=== PATIENT | female | born 1990 | race Caucasian/White ===

== ENCOUNTER → 2020-07-16 11:38 | Outpatient (BNVA) | payer MEDICAID, SELFPAY | PROVIDERS: Family Provider Family Medicine; Visit Provider Nurse Practitioner Family | DX: Z20.828 Contact with and (suspected) exposure to other viral communicable diseases (principal); W19.XXXA Unspecified fall, initial encounter; Y92.009 Unspecified place in unspecified non-institutional (private) residence as the place of occurrence of the external cause; S46.911A Strain of unspecified muscle, fascia and tendon at shoulder and upper arm level, right arm, initial encounter; M54.2 Cervicalgia; B96.89 Other specified bacterial agents as the cause of diseases classified elsewhere; J32.9 Chronic sinusitis, unspecified | CPT/HCPCS: 87400 ==

== ENCOUNTER → 2020-07-17 09:52 | Outpatient (BNVA) | payer MEDICAID, SELFPAY | PROVIDERS: Family Provider Family Medicine; Visit Provider Nurse Practitioner Family | DX: Z20.828 Contact with and (suspected) exposure to other viral communicable diseases (principal); W19.XXXA Unspecified fall, initial encounter; Y92.009 Unspecified place in unspecified non-institutional (private) residence as the place of occurrence of the external cause; M54.2 Cervicalgia; S46.911A Strain of unspecified muscle, fascia and tendon at shoulder and upper arm level, right arm, initial encounter; B96.89 Other specified bacterial agents as the cause of diseases classified elsewhere; J32.9 Chronic sinusitis, unspecified | CPT/HCPCS: 87635 ==

== ENCOUNTER → 2020-10-21 11:25 | Outpatient (BNVA) | payer MEDICAID, SELFPAY | PROVIDERS: Family Provider Family Medicine; PCP Nurse Practitioner Family; Visit Provider Nurse Practitioner Family | DX: F41.9 Anxiety disorder, unspecified (principal); F32.9 Major depressive disorder, single episode, unspecified; E55.9 Vitamin D deficiency, unspecified; R53.83 Other fatigue; M25.561 Pain in right knee; M25.562 Pain in left knee; G89.29 Other chronic pain; Z79.899 Other long term (current) drug therapy; Z13.6 Encounter for screening for cardiovascular disorders | CPT/HCPCS: 73562; 80053; 80061; 81003; 82306; 83036; 84439; 84443; 85025; 85651; 86038; 86140; 86431 ==

== ENCOUNTER → 2020-10-28 13:43 | Outpatient (BNVA) | payer MEDICAID, SELFPAY | PROVIDERS: Family Provider Family Medicine; PCP Nurse Practitioner Family; Visit Provider Nurse Practitioner Family | DX: M25.561 Pain in right knee (principal); M25.562 Pain in left knee | CPT/HCPCS: 73560 ==

== ENCOUNTER → 2020-12-18 09:04 | Outpatient (BNVA) | payer MEDICAID, SELFPAY | PROVIDERS: Family Provider Family Medicine; PCP Nurse Practitioner Family; Visit Provider Internal Medicine Rheumatology | DX: M19.90 Unspecified osteoarthritis, unspecified site (principal); R76.8 Other specified abnormal immunological findings in serum; Z79.899 Other long term (current) drug therapy; Z11.59 Encounter for screening for other viral diseases; Z11.1 Encounter for screening for respiratory tuberculosis; R53.83 Other fatigue; I73.00 Raynaud's syndrome without gangrene | CPT/HCPCS: 99204 ==

== ENCOUNTER 2020-12-18 10:37 | Outpatient (CLI) | payer MEDICAID, SELFPAY ==
[2020-12-18 12:18] LABS: 25 Hydroxy Vitamin D 40 ng/mL (30-100)
[2020-12-18 12:45] LABS: Hepatitis B Core AB, Total Non-Reactive (Nonreactive); Hepatitis B Surface Antigen Non-Reactive (Nonreactive); Hepatitis C Virus Antibody Non-Reactive (Nonreactive)
[2020-12-19 10:27] LABS: COMPLEMENT COMPONENT C3C 117 mg/dL (83-193); COMPLEMENT COMPONENT C4C 26 mg/dL (15-57)
[2020-12-19 14:06] LABS: CENTROMERE B ANTIBODY <1.0 NEG AI (<1.0 NEG); JO-1 ANTIBODY <1.0 NEG AI (<1.0 NEG); RNP ANTIBODY <1.0 NEG AI (<1.0 NEG); SCL-70 ANTIBODY <1.0 NEG AI (<1.0 NEG); SJOGREN'S ANTIBODY (SS-A) <1.0 NEG AI (<1.0 NEG); SM ANTIBODY <1.0 NEG AI (<1.0 NEG); SS-B <1.0 NEG AI (<1.0 NEG)
[2020-12-19 15:42] LABS: COMPLEMENT, TOTAL (CH50) >60 U/mL (31-60)
[2020-12-19 16:36] LABS: THYROID PEROXIDASE ANTIBODIES 1 IU/mL (<9)
[2020-12-20 14:43] LABS: Quantiferon Mitogen 9.53 IU/mL; Quantiferon Nil 0.02 IU/mL; Quantiferon Plus TB1 0.01 IU/mL; Quantiferon TB Gold NEGATIVE (NEGATIVE)
[2020-12-22 11:32] LABS: ANA SCREEN, IFA POSITIVE (NEGATIVE)
[2020-12-24 00:07] LABS: DNA AB (DS) CRITHIDIA,IFA NEGATIVE (NEGATIVE)
== END 2020-12-18 10:38 | disposition home or self-care (01) ==
PROVIDERS: PCP Nurse Practitioner Family; Visit Provider Internal Medicine Rheumatology
DX: M19.90 Unspecified osteoarthritis, unspecified site (principal); R76.8 Other specified abnormal immunological findings in serum; Z11.59 Encounter for screening for other viral diseases; Z79.899 Other long term (current) drug therapy; Z11.1 Encounter for screening for respiratory tuberculosis
CPT/HCPCS: 36415; 82306; 86160; 86162; 86235; 86255; 86376; 86480; 86704; 86803; 87340

== ENCOUNTER → 2021-01-05 12:22 | Outpatient (BNVA) | payer MEDICAID, SELFPAY | PROVIDERS: PCP Nurse Practitioner Family; Visit Provider Nurse Practitioner Family | DX: H66.93 Otitis media, unspecified, bilateral (principal); L03.316 Cellulitis of umbilicus | CPT/HCPCS: 87070 ==

== ENCOUNTER → 2021-01-23 11:02 | Outpatient (BNVA) | payer MEDICAID, SELFPAY | PROVIDERS: PCP Nurse Practitioner Family; Referring Provider Nurse Practitioner Family; Visit Provider Obstetrics & Gynecology | DX: N92.6 Irregular menstruation, unspecified (principal); N91.2 Amenorrhea, unspecified; Z12.4 Encounter for screening for malignant neoplasm of cervix | CPT/HCPCS: 82627; 83001; 83002; 84403; 84443; 85025; 88175; 88305 ==

== ENCOUNTER → 2021-02-09 08:57 | Outpatient (BNVA) | payer MEDICAID, SELFPAY | PROVIDERS: PCP Nurse Practitioner Family; Visit Provider Obstetrics & Gynecology | DX: N93.9 Abnormal uterine and vaginal bleeding, unspecified (principal); R87.612 Low grade squamous intraepithelial lesion on cytologic smear of cervix (LGSIL) | CPT/HCPCS: 81025; 88305 ==

== ENCOUNTER → 2021-02-17 10:20 | Outpatient (BNVA) | payer MEDICAID, SELFPAY | PROVIDERS: PCP Nurse Practitioner Family; Visit Provider Obstetrics & Gynecology | DX: N92.6 Irregular menstruation, unspecified (principal) | CPT/HCPCS: 76830 ==

== ENCOUNTER → 2021-03-10 15:05 | Outpatient (BNVA) | payer MEDICAID, SELFPAY | PROVIDERS: PCP Nurse Practitioner Family; Visit Provider Internal Medicine Rheumatology | DX: M25.60 Stiffness of unspecified joint, not elsewhere classified (principal); R76.8 Other specified abnormal immunological findings in serum; R53.83 Other fatigue; Z79.899 Other long term (current) drug therapy; I73.00 Raynaud's syndrome without gangrene; R10.11 Right upper quadrant pain; F17.200 Nicotine dependence, unspecified, uncomplicated | CPT/HCPCS: 99214 ==

== ENCOUNTER → 2021-04-02 13:14 | Outpatient (BNVA) | payer MEDICAID, SELFPAY | PROVIDERS: PCP Nurse Practitioner Family; Visit Provider Obstetrics & Gynecology | DX: Z20.822 Contact with and (suspected) exposure to COVID-19 (principal); N85.2 Hypertrophy of uterus; N93.9 Abnormal uterine and vaginal bleeding, unspecified; R10.2 Pelvic and perineal pain; R87.612 Low grade squamous intraepithelial lesion on cytologic smear of cervix (LGSIL) | CPT/HCPCS: 87635 ==

== ENCOUNTER 2021-04-07 13:46 | Observation (INO) | payer MEDICAID, SELFPAY ==
[2021-04-03 12:07] VITALS: BMI 26.6
--- NOTE | 2021-04-03 12:28 | ANES.PREANE2 ---
Pre-Anesthetic Assessment Pre-Anesthetic Assessment: Height/Weight: Height 1.65 m Weight 72.575 kg Preop Diagnosis: enlarged uterus, pelvic pain, abnormal pap, AUB Proposed Procedure: Operation Date: 04/07/21 09:40 Proposed Procedures p Laparoscopic Assist Vaginal Hysterectomy 20641 R10.2 N93.9 N85.2 R87.612(Not Applicable) - Yvonne Stanley MD s Laparoscopic Salpingectomy(Not Applicable) - Yvonne Stanley MD Familial anesthetic complications: PONV and aggression Social: Social History: Tobacco and No alcohol Exam: Pre-Anes Outpt Exam: alert, oriented x 3, clear to auscultation bilaterally and regular rate & rhythm Airway: MP: 2 Dentition: Chipped (back) Musc/skel: Comments: arthritis, ? lupus (on prednisone and hydroxychloroquine) Neuropsych: Neuropsych: Seizure (ages 12 -15 etiology migraines) Anesthetic Plan: ASA status: 2 Anesthesia: General Risk of > 500 ml blood loss (7ml/kg in children): No PFSH Anesthesia PFSH: Medical History Anxiety and depression Bilateral knee pain Bipolar depression Cellulitis of umbilicus Cervical spine pain Chronic joint pain Fall at home Family history of systemic lupus erythematosus Fatigue Fatigue Fever H/O acute pelvic inflammatory disease High risk medication use Hypertension screen Inflammatory arthritis Irregular menstrual bleeding Low libido Medication management Otitis media of both ears Positive CHRISTY (antinuclear antibody) Right shoulder strain Sinusitis, bacterial Vitamin D deficiency Surgical History H/O tubal ligation 2012 History of 2012 History of cholecystectomy 2009 Family History Mother Cervical cancer Father Diabetes Chronic kidney disease (CKD) CAD (coronary artery disease) Hyperlipidemia Hypertension Lung disease Lupus Grandfather Diabetes Paternal Sister Chronic kidney disease (CKD) Lupus Other Family history of premature coronary artery disease Rheumatoid arthritis Denies family history of Bleeding disorder Stroke Social History Smoking and tobacco status: current every day smoker Female Reproductive History: Date of last menstrual period: 03/23/21 Data Anesthesia Cardiac Studies: No Data to Display
[2021-04-03 13:44] LABS: Basophils # 0.1 10^3/uL (0.0-0.1); Basophils % 0.6 %; Eosinophils # 0.2 10^3/uL (0.0-0.8); Eosinophils % 1.9 %; Hemoglobin 14.6 g/dL (11.5-15.3); Lymphocytes # 2.8 10^3/uL (0.8-4.8); Lymphocytes % 28.4 %; Mean Corpuscular HGB Conc 33.2 g/dL (30.0-36.0); Mean Corpuscular Hemoglobin 30.5 pg (28.0-34.0); Mean Corpuscular Volume 91.9 fl (81-99); Mean Platelet Volume 11.6 fL (7.4-10.4); Monocytes # 0.4 10^3/uL (0.2-0.9); Neutrophils # 6.38 10^3/uL (1.8-7.7); Neutrophils % 64.8 %; Nucleated Red Blood Cells % 0 %; Platelet Count 220 10^3/cmm (130-400); Red Blood Count 4.79 10^6/uL (4.1-5.3); Red Cell Distribution Width 12.8 % (12.1-15.1); White Blood Count 9.8 10^3/uL (4.0-10.0)
[2021-04-03 13:59] LABS: Blood Urea Nitrogen 11 mg/dL (6-20); Calcium 9.2 mg/dL (8.5-10.5); Carbon Dioxide 27 mmol/L (22-29); Chloride 100 mmol/L (98-107); Glomerular Filtration Rate 118.2 mL/min (90-130); Glucose 66 mg/dL (65-115); Osmolality Calculated 280 mOsm/kg (285-295); Sodium 136 mmol/L (136-145)
[2021-04-07] VITALS (22 sets, daily range): BP systolic 100–129; BP diastolic 65–89; PULSE 69–101; RESP 16–24; TEMP 36.4–37; O2SAT 95–100
[2021-04-07] MEDS: sodium chloride 0.9% 1,000 ML 30 ML IV (08:38)
[2021-04-07] MEDS: scopolamine 1.5 Patch 1 PATCH TRANSDERMA (08:39)
[2021-04-07] MEDS: phenazopyridine 100 mg Tablet 200 MG PO (08:40)
[2021-04-07] MEDS: ketorolac 30 mg/mL INJ IVP ×3 (08:40→21:53)
[2021-04-07] MEDS: CELEcoxib 200 mg Capsule 400 MG PO (08:40)
[2021-04-07] MEDS: gabapentin 300 mg Capsule PO (08:41)
[2021-04-07 09:03] LABS: OR HCG Qualitative Urine Negative (Negative)
[2021-04-07] MEDS: acetaminophen 1,000 MG/100 ML PIGGYBACK 400 MG IV (10:15)
--- NOTE | 2021-04-07 10:15 | W.PM.OPSUD ---
Surgery/Procedure H&P Update DATE OF PROCEDURE: April 07, 2021 DATE H&P PERFORMED: 04/02/21 H&P UPDATE INFORMATION: I have reviewed H&P completed within last 30 days, I have examined patient prior to procedure and No changes to prior documentation PREOP DIAGNOSIS: enlarged uterus, pelvic pain, abnormal pap, AUB PLANNED PROCEDURE: Operation Date: 04/07/21 09:40 Proposed Procedures p Laparoscopic Assist Vaginal Hysterectomy 38832 R10.2 N93.9 N85.2 R87.612(Not Applicable) - Yvonne Stanley MD s Laparoscopic Salpingectomy(Not Applicable) - Yvonne Stanley MD Related Problem List Diagnoses (1) Enlarged uterus: (2) Pelvic pain: (3) LGSIL on Pap smear of cervix: (4) Abnormal uterine bleeding (AUB):
--- NOTE | 2021-04-07 10:19 | P.ANESUD_ITS ---
Pre-Anesthetic Update Pre-Anesthetic Assessment: Date of Surgery/Procedure: 04/07/21 Preop Nallely gnosis: enlarged uterus, pelvic pain, abnormal pap, AUB Proposed Procedure: Operation Date: 04/07/21 09:40 Proposed Procedures p Laparoscopic Assist Vaginal Hysterectomy 36183 R10.2 N93.9 N85.2 R87.612(Not Applicable) - Yvonne Stanley MD s Laparoscopic Salpingectomy(Not Applicable) - Yvonne Stanley MD Any changes to Pre-Anesthetic Assessment?: No Last Intake: Intake Last Liquid Date 04/06/21 Last Liquid Time 21:00 Last Solid Date 04/06/21 Last Solid Time 16:00 Labs Last 48hrs: Laboratory Results - last 48 hr 04/07/21 09:01 Urine HCG, Qual Negative Vitals: Temperature 98.6 F 04/07/21 08:21 Pulse Rate 86 04/07/21 08:21 Respiratory Rate 16 04/07/21 08:21 Blood Pressure 114/71 04/07/21 08:21 Blood Pressure Mallika n 85 04/07/21 08:21 Pulse Oximetry 98 04/07/21 08:21 Oxygen Delivery Me thod 04/07/21 08:22 Exam: Pre-Anes Outpt Exam: alert, oriented x 3, clear to auscultation bilaterally and regular rate & rhythm Cardiac Studies: No Data to Display
[2021-04-07] MEDS: vasopressin 20 unit/mL INJ INJECTION (11:28)
--- NOTE | 2021-04-07 13:26 | P.OP_ITS ---
Operative Report Date of procedure: April 07, 2021 Pre-op Diagnosis: enlarged uterus, pelvic pain, abnormal pap, AUB Post-op diagnosis: same Post-op Findings: entire omentum adhered to the previous . Normal appearing uterus, tubes and ovaries Procedure Done: Laparoscopic assisted vaginal hysterectomy with bilateral salpingectomy Specimens removed/disposition: uterus and bilateral fallopian tubes to pathology Anesthesia: General Estimated blood loss (mL): 100 IV fluids (mL): 1,000 Urine output (mL): 100 Complications: none Condition: stable Disposition: floor Procedure: The patient was taken to the operating room where general anesthesia was administered and found to be adequate. She was prepped and draped in the normal sterile fashion in the dorsal lithotomy position in [facility]. A Keenan catheter was placed. A weighted speculum was placed into the vagina and the anterior lip of the cervix was grasped with a single tooth tenaculum. The Zumi uterine manipulator was placed. The weighted speculum was removed. The gloves were changed and attention was turned to the abdomen. A 5 mm infraumbilical incision was made. Using a 5 mm port with the camera, the port was placed into the abdomen. The abdomen was insufflated. Two low, lateral 5 mm ports were placed on the left and right under direct visualization from the camera. The entire omentum was adhesed to the previous scar. Dr Fonseca was contacted and he came to the room. He took down the adhesions. See his separate report. The right tube was grasped and elevated. Using the laparoscopic cautery, the mesosalpinx was divided between the ovary and tube. The tube was removed. This was performed the same way on the left. The uteroovarian ligaments as well as the round ligaments were ligated. Attention was then turned to the vaginal portion of the procedure. The weighted speculum was placed into the vagina. The zumi manipulator was removed. The single tooth tenaculum was removed and replaced with the severiano's tenaculum. 10 mL of dilute Pitressin was injected at the vesicovaginal junction. A circumferential incision was made at the vesicovaginal junction and the vaginal mucosa reflected cephalad. The posterior peritoneum was entered sharply with the Metzenbaum scissors and the long weighted speculum replaced. Using the Migue clamps the uterosacral ligaments were clamped cut and suture- ligated. The anterior peritoneum was entered sharply with the metzenbaum scissors. Then sequentially the uterine arteries and cardinal ligaments were clamped cut and suture-ligated. A single-tooth tenaculum was used to deliver the uterus. The remaining segement of the utero-ovarian ligaments were clamped cut and suture-ligated bilaterally and the specimen was removed. There was good hemostasis with only mild bleeding from the cuff. The peritoneum was closed with a pursestring using 2-0 Vicryl. The vaginal cuff was closed with 0 Vicryl in a running locked pattern incorporating the uterosacral ligaments into the lateral aspects of the vaginal cuff. The Keenan catheter was removed and the cystoscope advanced into the bladder. The patient was given pyridium and bilateral spill was noted. There were no injuries or deficits noted in the bladder. The cystoscope was removed and the Keenan was replaced. Vaginal packing was placed for good hemostasis. The patient tolerated the procedure well. Sponge lap and needle counts were correct x3. She was taken to the recovery room in stable condition.
--- NOTE | 2021-04-07 13:53 | PC.NURSE ---
Patient was positioned accordingn to Dr Jaden raines, buttocks off end of bed 3 inches in lithotomy.
[2021-04-07] MEDS: fentaNYL 50 mcg/mL INJ 2mL IVP ×2 (14:03→14:08)
[2021-04-07] MEDS: ondansetron 2 mg/ML SDV 2 mL 4 MG IVP (14:22)
[2021-04-07] MEDS: metoclopramide 5 mg/mL SDV 2 mL 10 MG IVP (14:30)
--- NOTE | 2021-04-07 14:43 | ANE.PACU2 ---
Inpatient post-anesthesia follow up: Airway intact: Yes Vital signs: Temperature 97.6 F Pulse Rate 73 Respiratory Rate 18 Blood Pressure 117/84 Pulse Oximetry 95 Oxygen Delivery Me thod Room Air Oxygen Flow Rate 8 Fraction of Inspir ed Oxygen Hydration adequate: Yes Nausea and vomiting: No Pain level: 2 Mental status: Baseline
--- NOTE | 2021-04-07 15:28 | PC.NURSE ---
Patient brought to OB floor from PACU at this time
[2021-04-07] MEDS: HYDROmorphone 1 mg/mL INJ 1 mL 1.5 MG IVP ×2 (16:21→19:53)
--- NOTE | 2021-04-07 17:11 | P.OP_ITS ---
Operative Report Date of procedure: April 07, 2021 Pre-op Diagnosis: Intra-abdominal adhesions Post-op diagnosis: same Procedure Done: Diagnostic laparoscopy with adhesiolysis Surgeon: Gonzales Ramirez Anesthesiologist: Surgical pita Aguirre Circulating nurse Marialuisa Alvarez Anesthesia: General (Funmi Peacock and Dr. James) Estimated blood loss (mL): 20 Condition: stable Disposition: observation Brief History: Ms. nur is undergoing planned laparoscopic assisted vaginal hysterectomy with bilateral salpingectomy. And intraoperatively Dr. Stanley requested intraoperative consultation for general surgery as apparently there was a lot of intra-abdominal adhesions after trocar insertions. That obscured the visualization of the pelvic anatomy. Procedure: As patient had previous C-sections in the past. I was called in the room after the patient was already intubated and surgery has started with a 5 mm ports placed at the bellybutton area and right lower quadrant and left lower quadrant. After I scrubbed in noticed that the patient does have central intra-abdominal adhesions and the umbilical trocar was surrounded by some adhesions. I elected at this point to add a left upper quadrant 5 mm trocar under direct visualization and using the Kids Note energy device.I was able to take adhesions down safely and the visualization was clear then, yet I elected to lift the transverse colon where was the site of the index insertion of the 5 mm trocar and I noticed a hematoma within the omental tissues closer to the colonic wall but without obvious breach to the wall of the colon wall. Suction irrigation was obtained and I elected to put couple of figure of eight 2-0 silk sutures on 2 the serosal layer closed by the hematoma of the omentum and underwater seal even prior to placement of the sutures there was no evidence of leak or bubbling underwater, followed by that 5 mm clips were applied for securing hemostasis of omental tissues at the same area. During the procedure I elected to switch the right lower quadrant 5 mm trocar to 11 mm trocar under direct visualization to have a better visualization using 10 mm scope 30 degree. Towards the end of the procedure I elected to place a figure of eight #1 PDS suture to close the fascial defect of the right lower quadrant where the sutures to be singed down by Dr. Stanley. Final look laparoscopy showed no active bleeding and no injuries to the bowel and suction irrigation was obtained and visualization of the abdominal cavity and pelvic organs were clear to proceed with the planned procedure. Count was completed at the end of my part and estimated blood loss about 20 mL. At this point I handed the case over to Dr. Stanley to proceed with her planned surgery There was no evidence of hematuria during my part and patient maintained to be hemodynamically stable.
[2021-04-07] MEDS: HYDROcodone-acetaminophen 5-325 mg Tablet PO (18:48)
[2021-04-08] MEDS: lactated ringers 1,000 ML 125 ML IV (01:06)
[2021-04-08] MEDS: HYDROcodone-acetaminophen 5-325 mg Tablet PO ×2 (02:25→09:38)
[2021-04-08] MEDS: ondansetron 2 mg/ML SDV 2 mL 4 MG IVP (03:19)
[2021-04-08 03:21] VITALS: TEMP 36.9
[2021-04-08] MEDS: ketorolac 30 mg/mL INJ IVP (03:59)
[2021-04-08 04:09] LABS: Basophils # 0.1 10^3/uL (0.0-0.1); Basophils % 0.2 %; Eosinophils % 0.2 %; Hematocrit 28.2 % (37.0-47.0); Hemoglobin 9.3 g/dL (11.5-15.3); Lymphocytes # 3.4 10^3/uL (0.8-4.8); Lymphocytes % 14.1 %; Mean Corpuscular Hemoglobin 30.5 pg (28.0-34.0); Mean Corpuscular Volume 92.5 fl (81-99); Monocytes % 4.3 %; Neutrophils # 19.15 10^3/uL (1.8-7.7); Neutrophils % 80.6 %; Nucleated Red Blood Cells % 0 %; Platelet Count 208 10^3/cmm (130-400); Red Blood Count 3.05 10^6/uL (4.1-5.3); White Blood Count 23.8 10^3/uL (4.0-10.0)
[2021-04-08 04:10] VITALS: BP 90/58; PULSE 73; RESP 16
[2021-04-08 05:00] LABS: Alanine Aminotransferase 10 U/L (0-33); Albumin Level 3.4 g/dL (3.5-5.2); Alkaline Phosphatase 40 IU/L (35-105); Aspartate Amino Transferase 14 U/L (0-32); Blood Urea Nitrogen 10 mg/dL (6-20); Calcium 7.7 mg/dL (8.5-10.5); Carbon Dioxide 19 mmol/L (22-29); Chloride 102 mmol/L (98-107); Globulin 1.8 g/dL (1.3-4.6); Glomerular Filtration Rate 98.9 mL/min (90-130); Glucose 145 mg/dL (65-115); Osmolality Calculated 282 mOsm/kg (285-295); Sodium 135 mmol/L (136-145); Total Bilirubin 0.4 mg/dL (0.15-1.2); Total Protein 5.2 g/dL (6.6-8.7)
[2021-04-08] MEDS: pantoprazole DR 40 mg Tablet PO (06:17)
--- NOTE | 2021-04-08 08:46 | PM.DCS ---
Discharge Providers Date of Admission: 04/07/21 13:46 Date of Discharge: April 08, 2021 Attending Provider at Admission: Yvonne Stanley MD Attending Provider at Discharge: Yvonne Stanley MD Primary Care Provider: CHESTER Kellogg Diagnoses at Discharge Discharge Diagnosis (1) Enlarged uterus: Status: Acute (2) Pelvic pain: Status: Acute (3) LGSIL on Pap smear of cervix: Status: Acute (4) Abnormal uterine bleeding (AUB): Status: Acute Reason for Visit Reason for Visit: Pelvic Pain, Abnormal uterine bleeding Hospital Course Hospital Course The patient was admitted for surgery. She did well postoperatively and was ready for discharge on day #1 Physical Exam Narrative: EXAM NARRATIVE: The patient is doing well this morning. she has no concerns Const: COMMON NORMALS: no acute distress, average body habitus, patient oriented x3, no limitations, healthy appearing, alert and well nourished GENERAL APPEARANCE: cooperative, comfortable, well kempt and well developed ORIENTATION/CONSCIOUSNESS: Yes awake, Yes oriented to person, Yes oriented to place and Yes oriented to time Resp: COMMON NORMALS: normal respiratory effort EFFORT & INSPECTION: Yes able to speak in complete sentences GI: COMMON NORMALS: Soft to palpation and non-tender PALPATION: Yes Soft to palpation Extremity: COMMON NORMALS: no calf tenderness Neuro: COMMON NORMALS: patient oriented x3 SENSORIUM/ORIENTATION: Yes alert, Yes oriented to person, Yes oriented to place and Yes oriented to time Psych: APPEARANCE: Yes well kempt Urinary Catheter Management^: Keenan: Cath Placed During This Visit: yes Reason for Continuing Indwelling Catheter: Perioperative Use in Selected Surgeries Urinary Catheter Date of Insertion: 04/07/21 Urinary Catheter Time of Insertion: 11:00 Discharge Data Data Completed and Pending: Pending at discharge Category Date Time Status ES surgery / GI i mages Routine Exams 04/07/21 10:09 Taken Urine Culture [facility] 04/07/21 10:55 Received Pathology: Surgic al [PTH] Routine Pth 04/07/21 13:23 Ordered Labs from last 24 hours 04/08/21 04/08/21 04/07/21 04:04 04:04 09:01 WBC 23.8 H RBC 3.05 L Hgb 9.3 L Hct 28.2 L MCV 92.5 MCH 30.5 MCHC 33.0 RDW 13.0 Plt Count 208 MPV 11.0 H Neut % (Auto) 80.6 Lymph % (Auto) 14.1 Randolph % (Auto) 4.3 Eos % (Auto) 0.2 Baso % (Auto) 0.2 Neut # (Auto) 19.15 H Lymph # (Auto) 3.4 Randolph # (Auto) 1.0 H Eos # (Auto) 0.0 Baso # (Auto) 0.1 Nucleated RBC % (a uto) 0 Nucleated RBCs # 0.0 Sodium 135 L Potassium 4.0 Chloride 102 Carbon Dioxide 19 L Anion Gap 18.0 BUN 10 Creatinine 0.7 GFR Calculation 98.9 Glucose 145 H Calculated Osmolal ity 282 L Calcium 7.7 L Total Bilirubin 0.4 AST 14 ALT 10 Alkaline Phosphata se 40 Total Protein 5.2 L Albumin 3.4 L Globulin 1.8 Urine HCG, Qual Negative Vitals: Last Vital Signs Temp 98.5 F 04/08/21 03:21 Pulse 73 04/08/21 04:10 Resp 16 04/08/21 04:10 BP 90/58 04/08/21 04:10 Pulse Ox 99 04/07/21 17:55 Discharge Plan Discharge Patient Disposition: Home Condition: Stable Prescriptions: New hydrocodone-acetaminophen 5-325 mg Tablet 1 tab PO Q4H PRN (Reason: Moderate To Severe Pain) Qty: 30 RF: 0 Continued pantoprazole 40 mg tablet,delayed release (DR/EC) See Rx Instructions PO DAILY Qty: 30 RF: 3 hydroxychloroquine 200 mg tablet See Rx Instructions PO .COMPLEX Qty: 45 RF: 3 ibuprofen 200 mg capsule 600 mg PO BID PRN (Reason: pain) RF: 0 acetaminophen [Tylenol Extra Strength] 500 mg tablet 1,000 mg PO Q6H PRN (Reason: Pain) RF: 0 prednisone 10 mg tablet See Rx Instructions PO .COMPLEX PRN (Reason: joint pain) Qty: 30 RF: 1 Discharge Orders: Discharge Order (Routine); Ordered 04/08/21 Ordered By: Yvonne Stanley Patient Instructions: Opioid Safety Discharge Attestations Time Spent in Discharge Care*: less than 30 min Quality Metrics Clinical Quality Measures During this hospital stay, did patient experience: None Coding Level of Care Code Acute Chg FW DC note Diagnoses Enlarged uterus N85.2 Pelvic pain R10.2 LGSIL on Pap smear of cervix R87.612 Abnormal uterine bleeding (AUB) N93.9
[2021-04-08] MEDS: docusate sodium 100 mg Capsule PO (09:38)
[2021-04-08 10:25] VITALS: BP 102/60; PULSE 70; RESP 17; TEMP 36.9
[2021-04-08 12:26] VITALS: BP 100/64; PULSE 108; RESP 17; TEMP 37.3
== END 2021-04-08 12:29 | disposition home or self-care (01) ==
LOC: OBGYN 13:46
PROVIDERS: Anesthesiology; Surgery; Admitting Provider Obstetrics & Gynecology; PCP Nurse Practitioner Family; Visit Provider Obstetrics & Gynecology
PROC: 0UT9FZZ Resection of Uterus, Via Natural or Artificial Opening With Percutaneous Endoscopic Assistance (ICD-10-PCS; principal; 2021-04-07 09:30)
PROC: (CPT 58661; 2021-04-07 09:30)
PROC: 0TJB8ZZ Inspection of Bladder, Via Natural or Artificial Opening Endoscopic (ICD-10-PCS; CPT 52000; 2021-04-07 09:30)
DX: N93.9 Abnormal uterine and vaginal bleeding, unspecified (principal); N85.2 Hypertrophy of uterus; R87.612 Low grade squamous intraepithelial lesion on cytologic smear of cervix (LGSIL); R10.2 Pelvic and perineal pain; F17.200 Nicotine dependence, unspecified, uncomplicated
CPT/HCPCS: 58552; 36415; 80048; 80053; 84703; 85025; 87086; 88307; G0378; J0690; J1100; J1170; J1885; J2250; J2405; J2704; J2765; J3010; J3490; J7030

== ENCOUNTER 2021-04-09 01:54 | Inpatient (IN) | payer MEDICAID, SELFPAY ==
[2021-04-08 10:25] VITALS: PULSE 70; RESP 17; TEMP 36.9
[2021-04-09] VITALS (31 sets, daily range): BP systolic 88–128; BP diastolic 43–82; PULSE 77–111; RESP 14–22; TEMP 36.6–37.2; O2SAT 97–100; BMI 27.1; BMI 26.2
--- NOTE | 2021-04-09 02:35 | ED_ITS ---
HPI - Wound/Laceration General: Chief Complaint: Wound/Laceration Stated Complaint: bleeding from post op site Time Seen by Provider: 04/09/21 02:34 History of Present Illness: HPI narrative: Patient is a 30-year-old female comes to the ED with postop bleeding. Patient had a laparoscopic hysterectomy performed on April 07. There are no complications with surgery and she was discharged home and was recovering well. She is having some typical postop pain but no acute change or severe postop pain. Tonight around 9 PM one of her laparoscopic incisions on the left lower abdomen was bleeding. She changed out some gauze and then laid on the couch and fell asleep. She woke up and her close in the couch were saturated with blood. Denies any vaginal bleeding and all bleeding is at surgical site. She rates her current postop abdominal pain a 7 out of 10 and did not take her pain med before coming to the ED because she was not sure what meds she would receive here in the ED. Denies any injury or trauma to the area to cause any acute change in bleeding. She endorses some lower abdominal swelling as well. She has had a bowel movement since postop. Denies any fever, chills, nausea/vomiting. Associated symptoms: Denies chills, fever(s), nausea or vomiting Review of Systems Const: Denies: fever(s), chills or fatigue Eyes: Denies: change in vision or eye discomfort ENMT: Denies: throat pain, odynophagia, nasal discharge or nasal congestion Card: Denies: chest pain, palpitations, edema, swelling of feet/ankles, dysp nyasia on exertion or orthopnea Resp: Denies: dyspnea, productive cough or non-productive cough GI: Reports: abdominal pain (post op lower abdominal pain); Denies: nausea, vomiting, diarrhea, constipation or hematochezia : Denies: flank pain, dysuria or hematuria Musc: Denies: neck pain, back pain or extremity swelling Skin/Breast: Reports: surgical incision (Laparoscopic incision site on lower left pelvis is actively bleeding); Denies: rash or new lesions Neuro: Denies: headache(s), numbness in extremities or weakness in extremities [facility] ED PFSH: Medical History Anxiety and depression Bilateral knee pain Bipolar depression Cellulitis of umbilicus Cervical spine pain Chronic joint pain Fall at home Family history of systemic lupus erythematosus Fatigue Fatigue Fever H/O acute pelvic inflammatory disease High risk medication use Hypertension screen Inflammatory arthritis Irregular menstrual bleeding Low libido Medication management Otitis media of both ears Positive CHRISTY (antinuclear antibody) Right shoulder strain Sinusitis, bacterial Vitamin D deficiency Surgical History H/O tubal ligation 2012 History of 2012 History of cholecystectomy 2009 Family History Mother Cervical cancer Father Diabetes Chronic kidney disease (CKD) CAD (coronary artery disease) Hyperlipidemia Hypertension Lung disease Lupus Grandfather Diabetes Paternal Sister Chronic kidney disease (CKD) Lupus Other Family history of premature coronary artery disease Rheumatoid arthritis Denies family history of Bleeding disorder Stroke Social History Smoking and tobacco status: current every day smoker Female Reproductive History: Date of last menstrual period: 03/23/21 Physical Exam Const: COMMON NORMALS: no acute distress, patient oriented x3, healthy appearing and alert GENERAL APPEARANCE: cooperative and comfortable HENMT: COMMON NORMALS: normocephalic HEAD & SCALP: normocephalic MOUTH: Normal oral and palatal mucosa present THROAT: posterior oropharynx normal and uvula midline Neck/C-Spine: COMMON NORMALS: supple GENERAL: Yes normal visual inspection Resp: COMMON NORMALS: normal respiratory effort, No retractions, No use of accessory muscles and clear to auscultation bilaterally AUSCULTATION: clear to auscultation bilaterally Cardio: COMMON NORMALS: regular rate, regular rhythm, S1 normal heart sound present, S2 normal heart sound present, No gallops present (Cardio), No clicks present (Cardio), No murmurs present (Cardio) and Peripheral pulses 2+ throughout RATE: regular rate RHYTHM: regular rhythm HEART SOUNDS: S1 normal heart sound present and S2 normal heart sound present PERIPHERAL PULSES: Peripheral pulses 2+ throughout GI: COMMON NORMALS: Normal to inspection, nondistended, normoactive bowel sounds present, Soft to palpation, non-tender and no masses INSPECTION: Yes abdominal wall ecchymosis (Left lower abdominal ecchymosis ), Yes incision Inspection of incision: other (Active bleeding at left lower abdominal laparoscopic incision site) and Yes Localized GI swelling present (Left lower abdominal swelling.) PALPATION: Yes Soft to palpation and Yes Tenderness to palpation present (GI) (Tenderness in lower abdomen over incision sites.) : COMMON NORMALS: Yes no CVA tenderness BLADDER/KIDNEY EXAM: Yes no CVA tenderness Back/Pelvis: COMMON NORMALS: no CVA tenderness Extremity: COMMON NORMALS: normal to inspection Neuro: COMMON NORMALS: patient oriented x3 and moves all extremities SENSORIUM/ORIENTATION: Yes alert Skin: GENERAL SKIN EXAM: dry skin Course Vital Signs: Vital signs: Vital Signs Temperature 98.5 F 04/09/21 01:58 Pulse Rate 110 H 04/09/21 03:19 Respiratory Rate 22 H 04/09/21 03:19 Blood Pressure 96/71 04/09/21 03:19 Pulse Oximetry 100 04/09/21 03:19 MDM - Wound/Laceration MDM Narrative: Medical decision making narrative: Patient is 30-year-old female comes to the ED with postop bleeding. Patient had a laparoscopic hysterectomy performed 2 days ago on April 07. Tonight approximately 9 PM she started developing moderate to heavy bleeding from left lower abdomen incision site. Denies any injury or trauma to cause bleeding. Denies vaginal bleeding. No acute change in postop abdominal pain. Denies any fevers, chills, nausea/vomiting, bladder or bowel symptoms. Vitals are stable. Exam shows some ecchymosis in left lower abdomen along with some active bleeding of incision site on left lower abdomen. Bleeding seems to be controlled with gauze and pressure. White blood cell count 12.5 (Apr 08-23.8) hemoglobin level 7.6 (-9.3). The rest of CBC and CMP were unremarkable. Type and screen ordered along with RBC transfusion of 2 units. Patient also given 1 L of IV fluids, Zofran and morphine while here in the ED. I talked with Dr. Mendoza about patient case and having her admitted. He contacted Dr. Wright and patient is going to be admitted. Lab Data: Attestation: I reviewed the patient's lab results. Labs: Lab Results 04/09/21 04/09/21 02:20 02:20 WBC 12.5 10^3/uL H 10 ^3/uL (4.0-10.0) RBC 2.47 10^6/uL L 10 ^6/uL (4.1-5.3) Hgb 7.6 g/dL L g/dL (11.5-15.3) Hct 22.0 % L % (37.0-47.0) MCV 89.1 fl fl (81-99) MCH 30.8 pg pg (28.0-34.0) MCHC 34.5 g/dL g/dL (30.0-36.0) RDW 13.0 % % (12.1-15.1) Plt Count 173 10^3/cmm 10^3 /cmm (130-400) MPV 11.5 fL H fL (7.4-10.4) Neut % (Auto) 73.1 % % Lymph % (Auto) 17.4 % % Dickey % (Auto) 7.4 % % Eos % (Auto) 1.1 % % Baso % (Auto) 0.4 % % Neut # (Auto) 9.09 10^3/uL H 10 ^3/uL (1.8-7.7) Lymph # (Auto) 2.2 10^3/uL 10^3/ uL (0.8-4.8) Dickey # (Auto) 0.9 10^3/uL 10^3/ uL (0.2-0.9) Eos # (Auto) 0.1 10^3/uL 10^3/ uL (0.0-0.8) Baso # (Auto) 0.1 10^3/uL 10^3/ uL (0.0-0.1) Nucleated RBC % (a uto) 0 % % Nucleated RBCs # 0.0 /100WBC /100W BC Sodium 137 mmol/L mmol/L (136-145) Potassium 3.8 mmol/L mmol/L (3.5-5.1) Chloride 104 mmol/L mmol/L (98-107) Carbon Dioxide 22 mmol/L mmol/L (22-29) Anion Gap 14.8 (5-19) BUN 9 mg/dL mg/dL (6-20) Creatinine 0.7 mg/dL mg/dL (0.5-0.9) GFR Calculation 98.9 mL/min mL/mi n (90-130) Glucose 130 mg/dL H mg/dL (65-115) Calculated Osmolal ity 284 mOsm/kg L mOs m/kg (285-295) Calcium 7.8 mg/dL L mg/dL (8.5-10.5) Total Bilirubin 0.3 mg/dL mg/dL (0.15-1.2) AST 13 U/L U/L (0-32) ALT 10 U/L U/L (0-33) Alkaline Phosphata se 42 IU/L IU/L (35-105) Total Protein 5.8 g/dL L g/dL (6.6-8.7) Albumin 3.6 g/dL g/dL (3.5-5.2) Globulin 2.2 g/dL g/dL (1.3-4.6) Discharge Plan Discharge Patient Disposition: Admitted As Inpatient Clinical Impression: Post-op bleeding, Anemia Condition: Stable Coding Level of Care Code ED Legal Editor for Jasmin Fwd Exam Comprehensive
[2021-04-09] MEDS: ondansetron 2 mg/ML SDV 2 mL 4 MG IVP ×2 (02:40→13:00)
[2021-04-09] MEDS: sodium chloride 0.9% 1,000 ML 999 ML IV (02:40)
[2021-04-09] MEDS: morphine 4 mg/mL SDV 1 mL IVP (02:40)
--- NOTE | 2021-04-09 02:40 | PC.NURSE ---
Home bandage removed to assess bleeding. Blood noted to be slowly dripping from approx 1cm x 1cm incision to LLQ. Gross dark red and purple bruising noted to entire lower abd and down toward perineal area and over to RLQ. Moderate swelling noted. EMILI Ramsey in room.
--- NOTE | 2021-04-09 02:42 | PC.NURSE ---
Abd pads placed over the bleeding. Placed pt on chucks pads, given blanket.
[2021-04-09 02:44] LABS: Basophils # 0.1 10^3/uL (0.0-0.1); Basophils % 0.4 %; Eosinophils # 0.1 10^3/uL (0.0-0.8); Eosinophils % 1.1 %; Hemoglobin 7.6 g/dL (11.5-15.3); Lymphocytes # 2.2 10^3/uL (0.8-4.8); Lymphocytes % 17.4 %; Mean Corpuscular HGB Conc 34.5 g/dL (30.0-36.0); Mean Corpuscular Hemoglobin 30.8 pg (28.0-34.0); Mean Corpuscular Volume 89.1 fl (81-99); Mean Platelet Volume 11.5 fL (7.4-10.4); Monocytes # 0.9 10^3/uL (0.2-0.9); Monocytes % 7.4 %; Neutrophils # 9.09 10^3/uL (1.8-7.7); Neutrophils % 73.1 %; Nucleated Red Blood Cells % 0 %; Platelet Count 173 10^3/cmm (130-400); Red Blood Count 2.47 10^6/uL (4.1-5.3); White Blood Count 12.5 10^3/uL (4.0-10.0)
[2021-04-09 03:00] LABS: Alanine Aminotransferase 10 U/L (0-33); Albumin Level 3.6 g/dL (3.5-5.2); Alkaline Phosphatase 42 IU/L (35-105); Anion Gap 14.8 (5-19); Aspartate Amino Transferase 13 U/L (0-32); Blood Urea Nitrogen 9 mg/dL (6-20); Calcium 7.8 mg/dL (8.5-10.5); Carbon Dioxide 22 mmol/L (22-29); Chloride 104 mmol/L (98-107); Globulin 2.2 g/dL (1.3-4.6); Glomerular Filtration Rate 98.9 mL/min (90-130); Glucose 130 mg/dL (65-115); Osmolality Calculated 284 mOsm/kg (285-295); Potassium 3.8 mmol/L (3.5-5.1); Sodium 137 mmol/L (136-145); Total Bilirubin 0.3 mg/dL (0.15-1.2); Total Protein 5.8 g/dL (6.6-8.7)
--- NOTE | 2021-04-09 04:35 | PC.NURSE ---
0350 Assisted via WC to the bathroom. Pt full one person assist due to weakness. Pt able to step from WC to toilet with assistance.
[2021-04-09] MEDS: lactated ringers 1,000 ML 125 ML IV (05:00)
[2021-04-09] MEDS: sodium chloride 0.9% (100 ml) 100 ML 10 ML (05:24)
[2021-04-09] MEDS: ibuprofen 800 mg tablet PO (05:32)
[2021-04-09] MEDS: sodium chloride 0.9% (100 ml) 100 ML (07:55)
--- NOTE | 2021-04-09 08:25 | PC.NURSE ---
Pt up to bathroom at this time with assistance. Pt tolerated ambulating well. When pt stood blood dripped down left leg from left lower abdomen incision. Gauze dressing saturated and removed. Replaced new 4x4 gauze dressing and placed abd pad over, secured with paper tape.
--- NOTE | 2021-04-09 09:01 | PC.NURSE ---
Called Dr. Wrihgt at this time to report that dressing was saturated and changed at 0825, incision site is still actively bleeding and drainage is noted on new dressing. Dr. Wright asked if Dr. Stanley has been notified,this specifications writer replied, no. Dr. Wright reported to call Dr. Stanley because she was going to be taking pt back to surgery.
--- NOTE | 2021-04-09 09:23 | CT_ITS ---
WS: [id number] CT ABDOMEN PELVIS TECHNIQUE: Noncontrast CT of the abdomen and pelvis with coronal and sagittal reformatted images. CLINICAL INFORMATION: post operative bleeding COMPARISON: None. DLP: 1420.[address] scans at [facility] use at least one of these dose optimization techniques: automated e xposure control; mA and/or kV adjustment per patient size (includes targeted exams where dose is matc hed to clinical indication); or iterative reconstruction. FINDINGS: Recent postoperative changes hysterectomy. Left ventral abdominal wall trocar insertion site. Subcuta neous air and edema in the ventral abdominal wall soft tissues along the surgical corridor. Scattered small locules of free air within the abdomen and pelvis. Free air is visualized in the upper abdomen about the liver consistent with postoperative change. Tiny amount of pneumobilia. Prior cholecystect federico. Urine distended bladder. No evidence of pelvic hematoma or fluid collection in the hysterectomy bed. Postoperative normal-appearing vaginal cuff. Postoperative subcutaneous air within the left ventral a bdominal wall extending into the perineum with induration in the left lateral abdominal wall soft tis sues along the trocar insertion site. No evidence of large hematoma or drainable fluid collection. Lung bases are well aerated. Noncontrast liver is normal. Normal spleen. Normal GE junction. Adrenal glands are normal. No hydronephrosis in either kidney. Normal caliber abdominal aorta. No evidence of high-grade small or large bowel obstruction. CT/CT abdomen pelvis wo con [id number] IMPRESSION: 1. Recent postoperative changes hysterectomy with left ventral abdominal wall trocar insertion site. 2. Induration and edema within the left ventral abdominal wall at the trocar s ite. No evidence of drainable fluid collection or large hematoma. Postoperative subcutaneous air extends along the left inguinal Canal and perineum. 3. Postoperative changes along the midline surgical incision corridor with sca ttered pockets of subcutaneous and intra-abdominal air. Small amount of free ai r about the liver consistent with recent postoperative change. 4. Hysterectomy bed is normal in appearance with normal vaginal cuff. No evide nce of pelvic hematoma or fluid collection. 5. No other significant findings. Discussed with Dr. Wright at 04/09/2021 10:11 AM.
[2021-04-09] MEDS: HYDROcodone-acetaminophen 5-325 mg Tablet PO ×2 (09:51→21:43)
--- NOTE | 2021-04-09 10:10 | W.PM.OPSUD ---
Surgery/Procedure H&P Update DATE OF PROCEDURE: April 09, 2021 DATE H&P PERFORMED: 04/02/21 H&P UPDATE INFORMATION: I have reviewed H&P completed within last 30 days and I have examined patient prior to procedure (LLQ hematoma pass midline extending to RLQ) PREOP DIAGNOSIS: Intra-abdominal adhesions PLANNED PROCEDURE: Operation Date: 04/09/21 11:00 Proposed Procedures p ligation of bleeding trocar site(Not Applicable) - Dada Wright MD
--- NOTE | 2021-04-09 10:12 | P.HP_ITS ---
Same Day Surgery H&P Indication for Procedure/HPI DATE OF PROCEDURE: April 09, 2021 CHIEF COMPLAINT/INDICATIONFOR SURGICAL PROCEDURE: Left lower quadrant pain and bleeding from incision on left side PREOP DIAGNOSIS: S/P Laparoscopic-assisted vaginal hysterectomy PLANNED PROCEDRUE: Operation Date: 04/09/21 11:00 Proposed Procedures p ligation of bleeding trocar site(Not Applicable) - Dada Wright MD Mrs. Liz 30 Mrs. Brink 30-year-old female is status post laparoscopic- assisted vaginal hysterectomy 2 days ago. Came to the emergency room early this morning complaining of bleeding from left side incision and lower abdominal pain. In the ER she was noted hemoglobin decreased to 7mg/dl and 2 units of packed red blood cells given. Abdominal/ pelvic CT scan essentially normal with the exception of anterior wall left lower edema. ROS Left lower pain. Bleeding from left incision Medications/Allergies* Home Medications Medication Instructions Recorded Confirmed Type acetaminophen 500 mg tablet 1,000 mg PO Q6H PRN tab 12/18/20 04/07/21 History ibuprofen 200 mg capsule 600 mg PO BID PRN cap 12/18/20 04/07/21 History Allergies/Adverse Reactions Allergy/AdvReac Type Severity Reaction Status Date / Time silver Allergy Severe ALGY-Hives Verified 04/09/21 01:58 Current Medications: Generic Name Dose Route Start Last Admin Trade Name Freq PRN Reason Stop Dose Admin Hydrocodone Bitart/Acetaminophen 1 - 2 tab 04/09/21 04:40 04/09/21 09:51 Hydrocodone-Acetaminophen 5-325 Mg Tablet PO 2 tab Q6H PRN Administration MODERATE TO SEVERE PAIN Docusate Sodium 100 mg 04/09/21 09:00 04/09/21 06:00 Docusate Sodium 100 Mg Capsule PO Not Given BID KADEN Lactated Ringer's 1,000 mls @ 125 mls/hr 04/09/21 04:45 04/09/21 05:07 Lactated Ringers IV 0 mls/hr .Q8H KADEN Infusion Ibuprofen 800 mg 04/09/21 05:15 04/09/21 05:32 Ibuprofen 800 Mg Tablet PO 800 mg Q8H KADEN Administration Pertinent History/Comorbid Conditions* Medical History (Updated 04/09/21 @ 03:57 by EMILI Boone) Anxiety and depression Bilateral knee pain Bipolar depression Cellulitis of umbilicus Cervical spine pain Chronic joint pain Fall at home Family history of systemic lupus erythematosus Fatigue Fatigue Fever H/O acute pelvic inflammatory disease High risk medication use Hypertension screen Inflammatory arthritis Irregular menstrual bleeding Low libido Medication management Otitis media of both ears Positive CHRISTY (antinuclear antibody) Right shoulder strain Sinusitis, bacterial Vitamin D deficiency Surgical History (Updated 02/20/21 @ 11:49 by Yvonne Stanley MD) H/O tubal ligation 2012 History of 2012 History of cholecystectomy 2009 Family History (Updated 01/23/21 @ 09:54 by Esther Lama LPN) Rheumatoid arthritis Cervical cancer Mother Diabetes Father Grandfather Paternal Lupus Father Sister CAD (coronary artery disease) Father Hyperlipidemia Father Chronic kidney disease (CKD) Father Sister Family history of premature coronary artery disease Lung disease Father Hypertension Father Denies family history of Bleeding disorder Stroke Social History Smoking and tobacco status: current every day smoker Pertinent Exam Findings alert, oriented x 3, regular rate & rhythm, operative site marked and procedure specific exam findings (Abdominal ecchymosis extending from the left side incision past midline ) Recommendations Surgery/Procedure today (Left trocar incision bleeding repair) Coding Level of Care Code Acute 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
--- NOTE | 2021-04-09 10:36 | ANES.PREANE2 ---
Pre-Anesthetic Assessment Pre-Anesthetic Assessment: Height/Weight: Height 1.65 m Weight 71.668 kg Temp Pulse Resp BP Pulse Ox 98.2 F 83 16 91/52 100 04/09/21 09:25 04/09/21 09:25 04/09/21 09:25 04/09/21 09:25 04/09/21 04:17 Preop Diagnosis: S/P Laparoscopic-assisted vaginal hysterectomy Proposed Procedure: Operation Date: 04/09/21 11:00 Proposed Procedures p ligation of bleeding trocar site(Not Applicable) - Dada Wright MD Was Beta Talon taken within 24 hours: N/A Was Clonidine taken within 24 hours: N/A Social: Social History: No alcohol and No tobacco Exam: Pre-Anes Outpt Exam: alert, oriented x 3, clear to auscultation bilaterally and regular rate & rhythm Airway: Submandibular: WNL Cervical ROM: WNL MP: 2 Dentition: Chipped CV/HEM: CV/HEM: Anemia (post surgical bleeding--Tx X 2units) GI: GI: GERD Musc/skel: Comments: ??SLE Neuropsych: Neuropsych: Anxiety, Bipolar, Depression, HOLLOWAY and Seizure Anesthetic Plan: ASA status: 2 Anesthesia: General Risk of > 500 ml blood loss (7ml/kg in children): No Meds/Allergies Current Medications: Current Medications Generic Name Dose Route Start Last Admin Trade Name Freq PRN Reason Stop Dose Admin Hydrocodone Bitart /Acetaminophen 1 - 2 tab 04/09/21 04:40 04/09/21 09:51 Hydrocodone-Acet aminophen 5-325 Mg Tablet PO 2 tab Q6H PRN Administration MODERATE TO SEVER E PAIN Docusate Sodium 100 mg 04/09/21 09:00 04/09/21 06:00 Docusate Sodium 100 Mg Capsule PO Not Given BID KADEN Lactated Ringer's 1,000 mls @ 125 m ls/hr 04/09/21 04:45 04/09/21 05:07 Lactated Ringers IV 0 mls/hr .Q8H KADEN Infusion Ibuprofen 800 mg 04/09/21 05:15 04/09/21 05:32 Ibuprofen 800 Mg Tablet PO 800 mg Q8H KADEN Administration PFSH Anesthesia PFSH: Medical History Anxiety and depression Bilateral knee pain Bipolar depression Cellulitis of umbilicus Cervical spine pain Chronic joint pain Fall at home Family history of systemic lupus erythematosus Fatigue Fatigue Fever H/O acute pelvic inflammatory disease High risk medication use Hypertension screen Inflammatory arthritis Irregular menstrual bleeding Low libido Medication management Otitis media of both ears Positive CHRISTY (antinuclear antibody) Right shoulder strain Sinusitis, bacterial Vitamin D deficiency Surgical History H/O tubal ligation 2012 History of 2012 History of cholecystectomy 2009 Family History Mother Cervical cancer Father Diabetes Chronic kidney disease (CKD) CAD (coronary artery disease) Hyperlipidemia Hypertension Lung disease Lupus Grandfather Diabetes Paternal Sister Chronic kidney disease (CKD) Lupus Other Family history of premature coronary artery disease Rheumatoid arthritis Denies family history of Bleeding disorder Stroke Social History Smoking and tobacco status: current every day smoker Female Reproductive History: Date of last menstrual period: 03/23/21 Data Anesthesia CBC & Chem 7: 04/09/21 02:20 04/09/21 02:20 Other Labs: Laboratory Results - last 48 hr 04/09/21 04/09/21 04/09/21 02:20 02:20 03:13 WBC 12.5 H RBC 2.47 L Hgb 7.6 L Hct 22.0 L MCV 89.1 MCH 30.8 MCHC 34.5 RDW 13.0 Plt Count 173 MPV 11.5 H Neut % (Auto) 73.1 Lymph % (Auto) 17.4 [place] % (Auto) 7.4 Eos % (Auto) 1.1 Baso % (Auto) 0.4 Neut # (Auto) 9.09 H Lymph # (Auto) 2.2 [place] # (Auto) 0.9 Eos # (Auto) 0.1 Baso # (Auto) 0.1 Nucleated RBC % (auto) 0 Nucleated RBCs # 0.0 Sodium 137 Potassium 3.8 Chloride 104 Carbon Dioxide 22 Anion Gap 14.8 BUN 9 Creatinine 0.7 GFR Calculation 98.9 Glucose 130 H Calculated Osmolality 284 L Calcium 7.8 L Total Bilirubin 0.3 AST 13 ALT 10 Alkaline Phosphatase 42 Total Protein 5.8 L Albumin 3.6 Globulin 2.2 Blood Type O Negative Rho(D) Type Negative Antibody Screen Negative Crossmatch See Detail Cardiac Studies: No Data to Display
[2021-04-09] MEDS: sodium chloride 0.9% 1,000 ML 30 ML IV (10:49)
--- NOTE | 2021-04-09 11:36 | P.OP_ITS ---
Operative Report Date of procedure: April 09, 2021 Pre-op Diagnosis: S/P Laparoscopic-assisted vaginal hysterectomy Pre-op Diagnosis: LLQ Trocar incision bleeding Post-op diagnosis: same Procedure Done: Trocar incision wound exploration Specimens removed/disposition: none Surgeon: Dada Wright MD Program Review Director: Yvonne Stanley Anesthesia: General Estimated blood loss (mL): 5 Complications: none Condition: stable Disposition: PACU Brief History: Mrs. Liz 30-year-old female status post laparoscopic-assisted vaginal hysterectomy 2 days ago. Bleeding from left trocar incision. Procedure: After assuring informed consent, the patient was taken to the operating room and anesthesia was initiated. She was placed in the dorsal supine position. The abdomen was prepped and draped in the usual sterile manner. A time-out procedure was performed. Then left lower quadrant trocar incision next to old delivery scar noticed oosing blood identified. The dermobond was removed and the incison was extended lateraly to visualize bleeding origin. [place] retractos used for better exposure. NO active bleeder could be identified. The area was tented and a figure eigth stich was performed above and below the incision. The oosing stopped. The are was observed and presure exerted to determine if bleeding continue but no further bleeding notoed. Then the incison was closed by Dr. Jones. The skin was closed with Insorb?s subcuticular absorbable adina. The patient tolerated the procedure well. The sponge, lap and needle counts were correct times three. The patient was given Ancef 2 gm intravenously immediately after delivery of the infant.
[2021-04-09] MEDS: meperidine 50 mg/mL INJ 12.5 MG IVP (11:59)
--- NOTE | 2021-04-09 12:20 | SUR.PHASEI ---
pt awake alert , states pain is better abd is soft dressing x1 d/i large amount of bruising to lt lower abd unchanged from prior to surgery. report called to floor
[2021-04-09] MEDS: ketorolac 30 mg/mL INJ IVP ×2 (13:00→18:03)
--- NOTE | 2021-04-09 13:43 | ANE.PACU2 ---
Inpatient post-anesthesia follow up: Airway intact: Yes Vital signs: Temperature 98.4 F Pulse Rate 87 Respiratory Rate 14 Blood Pressure 121/70 Pulse Oximetry 97 Oxygen Delivery Me thod Room Air Oxygen Flow Rate 8 Fraction of Inspir ed Oxygen Hydration adequate: Yes Nausea and vomiting: No Pain level: 2 Mental status: Baseline
[2021-04-09 14:45] LABS: Hematocrit 26.8 % (37.0-47.0); Hemoglobin 9.1 g/dL (11.5-15.3); Mean Corpuscular Hemoglobin 30.8 pg (28.0-34.0); Mean Corpuscular Volume 90.8 fl (81-99); Mean Platelet Volume 11.3 fL (7.4-10.4); Platelet Count 128 10^3/cmm (130-400); Red Blood Count 2.95 10^6/uL (4.1-5.3); Red Cell Distribution Width 13.6 % (12.1-15.1); White Blood Count 9.4 10^3/uL (4.0-10.0)
[2021-04-09] MEDS: pantoprazole DR 40 mg Tablet PO (16:49)
[2021-04-09] MEDS: docusate sodium 100 mg Capsule PO (17:06)
[2021-04-09] MEDS: predniSONE 10 mg Tablet PO (17:06)
[2021-04-09 20:27] LABS: Hematocrit 27.2 % (37.0-47.0); Hemoglobin 9.1 g/dL (11.5-15.3); Mean Corpuscular HGB Conc 33.5 g/dL (30.0-36.0); Mean Corpuscular Hemoglobin 30.2 pg (28.0-34.0); Mean Corpuscular Volume 90.4 fl (81-99); Mean Platelet Volume 11.2 fL (7.4-10.4); Platelet Count 131 10^3/cmm (130-400); Red Blood Count 3.01 10^6/uL (4.1-5.3); Red Cell Distribution Width 13.7 % (12.1-15.1); White Blood Count 10.2 10^3/uL (4.0-10.0)
[2021-04-09] MEDS: dextrose 5%-lactated ringers 1,000 ML 125 ML IV (23:19)
[2021-04-10] MEDS: ketorolac 30 mg/mL INJ IVP (00:29)
[2021-04-10 04:51] VITALS: BP 102/64; PULSE 88; RESP 15; TEMP 36.8
[2021-04-10 05:06] LABS: Hematocrit 24.1 % (37.0-47.0); Hemoglobin 7.9 g/dL (11.5-15.3); Mean Corpuscular HGB Conc 32.8 g/dL (30.0-36.0); Mean Corpuscular Hemoglobin 30.4 pg (28.0-34.0); Mean Corpuscular Volume 92.7 fl (81-99); Mean Platelet Volume 11.7 fL (7.4-10.4); Platelet Count 104 10^3/cmm (130-400); White Blood Count 7.4 10^3/uL (4.0-10.0)
[2021-04-10] MEDS: pantoprazole DR 40 mg Tablet PO (06:22)
--- NOTE | 2021-04-10 06:22 | PC.NURSE ---
protonix given early due to pt needing medication before breakfast.
--- NOTE | 2021-04-10 07:53 | PM.DCS ---
Discharge Providers Date of Admission: 04/09/21 03:39 Date of Discharge: April 10, 2021 Attending Provider at Admission: Dada Wright MD Attending Provider at Discharge: Dada Wright MD Primary Care Provider: CHESTER Kellogg Reason for Visit Reason for Visit: bleeding from post op site Hospital Course Hospital Course The patient was admitted from the ER on the evening of POD#1 for bleeding from her left op site. She was given 2 liters of blood, as her hemoglobin had dropped to 7.6. She was taken to the OR. The site was opened and the muscle ligated. She did well post operatively and was ready for discharge on day #1. Physical Exam Const: COMMON NORMALS: no acute distress, patient oriented x3, no limitations, healthy appearing, alert and well nourished GENERAL APPEARANCE: cooperative, comfortable, well kempt and well developed ORIENTATION/CONSCIOUSNESS: Yes awake, Yes oriented to person, Yes oriented to place and Yes oriented to time Resp: COMMON NORMALS: normal respiratory effort EFFORT & INSPECTION: Yes able to speak in complete sentences GI: COMMON NORMALS: Soft to palpation and non-tender INSPECTION: Yes other (echymosis present. Lightening superiorly) PALPATION: Yes Soft to palpation Extremity: COMMON NORMALS: no calf tenderness NARRATIVE EXTREMITY EXAM: 1+ LE edema bilaterally Neuro: COMMON NORMALS: patient oriented x3 SENSORIUM/ORIENTATION: Yes alert, Yes oriented to person, Yes oriented to place and Yes oriented to time Psych: COMMON NORMALS: mental status grossly normal, Normal thought process present, cooperative, normal affect and speech normal APPEARANCE: Yes grossly normal and Yes well kempt ATTITUDE: Yes calm and Yes engaged ACTIVITY/MOTOR BEHAVIOR: Yes appropriate eye contact SPEECH: Yes normal speech THOUGHT PROCESS: Normal thought process present Urinary Catheter Management^: Keenan: Cath Placed During This Visit: yes, but has since been removed by the nurse Urinary Catheter Date of Insertion: 04/09/21 Urinary Catheter Time of Insertion: 11:10 Date Urinary Catheter Removed: 04/09/21 Time Urinary Catheter Discontinued: 11:48 Discharge Data Data Completed and Pending: Completed Studies During Hospitalization Category Date Time Status CT abdomen pelvis wo con [id number] Urge nt Cat Scan 04/09/21 09:23 Completed Labs from last 24 hours 04/10/21 04/09/21 04/09/21 04:47 20:20 14:20 WBC 7.4 10.2 H 9.4 RBC 2.60 L 3.01 L 2.95 L Hgb 7.9 L 9.1 L 9.1 L Hct 24.1 L 27.2 L 26.8 L MCV 92.7 90.4 90.8 MCH 30.4 30.2 30.8 MCHC 32.8 33.5 34.0 RDW 14.0 13.7 13.6 Plt Count 104 L 131 128 L MPV 11.7 H 11.2 H 11.3 H Blood Type Rho(D) Type Antibody Screen Crossmatch 04/09/21 03:13 WBC RBC Hgb Hct MCV MCH MCHC RDW Plt Count MPV Blood Type O Negative Rho(D) Type Negative Antibody Screen Negative Crossmatch See Detail Vitals: Last Vital Signs Temp 98.2 F 04/10/21 04:51 Pulse 88 04/10/21 04:51 Resp 15 04/10/21 04:51 BP 102/64 04/10/21 04:51 Pulse Ox 97 04/09/21 12:10 Discharge Plan Discharge Patient Disposition: Home Condition: Stable Prescriptions: New Mi-Acid Gas Relief(simethicon) 80 mg Tablet,Chewable 80 mg PO QID PRN (Reason: Gas distention) Qty: 60 RF: 0 Continued pantoprazole 40 mg tablet,delayed release (DR/EC) See Rx Instructions PO DAILY Qty: 30 RF: 3 hydroxychloroquine 200 mg tablet See Rx Instructions PO .COMPLEX Qty: 45 RF: 3 ibuprofen 200 mg capsule 600 mg PO BID PRN (Reason: pain) RF: 0 acetaminophen [Tylenol Extra Strength] 500 mg tablet 1,000 mg PO Q6H PRN (Reason: Pain) RF: 0 prednisone 10 mg tablet See Rx Instructions PO .COMPLEX PRN (Reason: joint pain) Qty: 30 RF: 1 hydrocodone-acetaminophen 5-325 mg Tablet 1 tab PO Q4H PRN (Reason: Moderate To Severe Pain) Qty: 30 RF: 0 Discharge Orders: Discharge Order (Routine); Ordered 04/10/21 Ordered By: Yvonne Stanley Referrals: CARMEN Hester, INTERNATIONAL COORDINATOR [Primary Care Provider] - Patient Instructions: Opioid Safety Discharge Attestations Time Spent in Discharge Care*: less than 30 min Quality Metrics Clinical Quality Measures During this hospital stay, did patient experience: None Coding Level of Care Code Acute Chg FW DC note
[2021-04-10] MEDS: ibuprofen 800 mg tablet PO (08:11)
[2021-04-10] MEDS: docusate sodium 100 mg Capsule PO (08:11)
[2021-04-10] MEDS: predniSONE 10 mg Tablet PO (08:11)
[2021-04-10 08:51] VITALS: BP 108/69; PULSE 85; RESP 17; TEMP 37.1
== END 2021-04-10 08:45 | disposition home or self-care (01) | DRG 908 ==
LOC: ER 03:57 → OBGYN 04:03
PROVIDERS: Obstetrics & Gynecology; Admitting Provider Obstetrics & Gynecology; Emergency Provider Physician Assistant; PCP Nurse Practitioner Family; Visit Provider Obstetrics & Gynecology
PROC: 0W3F0ZZ Control Bleeding in Abdominal Wall, Open Approach (ICD-10-PCS; principal; 2021-04-09 11:00)
DX: L76.22 Postprocedural hemorrhage of skin and subcutaneous tissue following other procedure (principal); D62 Acute posthemorrhagic anemia; Y83.8 Other surgical procedures as the cause of abnormal reaction of the patient, or of later complication, without mention of misadventure at the time of the procedure; Y76.3 Surgical instruments, materials and obstetric and gynecological devices (including sutures) associated with adverse incidents; F41.9 Anxiety disorder, unspecified; F31.9 Bipolar disorder, unspecified; F17.210 Nicotine dependence, cigarettes, uncomplicated; Z79.82 Long term (current) use of aspirin
CPT/HCPCS: 36415; 36430; 51702; 74176; 80053; 85025; 85027; 86850; 86900; 86920; 99285; J0690; J1885; J2175; J2270; J2405; J2704; J3010; J3490; J7030; J7512; P9016

== ENCOUNTER 2021-05-04 11:30 | Outpatient (CLI) | payer MEDICAID, SELFPAY ==
[2021-05-04 11:54] LABS: Basophils # 0.1 10^3/uL (0.0-0.1); Basophils % 0.4 %; Eosinophils # 0.3 10^3/uL (0.0-0.8); Eosinophils % 2.1 %; Hematocrit 42.9 % (37.0-47.0); Hemoglobin 14.1 g/dL (11.5-15.3); Lymphocytes # 2.1 10^3/uL (0.8-4.8); Lymphocytes % 16.3 %; Mean Corpuscular HGB Conc 32.9 g/dL (30.0-36.0); Mean Corpuscular Hemoglobin 29.9 pg (28.0-34.0); Mean Corpuscular Volume 91.1 fl (81-99); Mean Platelet Volume 11.2 fL (7.4-10.4); Monocytes # 0.3 10^3/uL (0.2-0.9); Monocytes % 2.4 %; Neutrophils # 9.92 10^3/uL (1.8-7.7); Neutrophils % 78.5 %; Nucleated Red Blood Cells % 0 %; Platelet Count 225 10^3/cmm (130-400); Red Blood Count 4.71 10^6/uL (4.1-5.3); Red Cell Distribution Width 12.9 % (12.1-15.1); White Blood Count 12.6 10^3/uL (4.0-10.0)
[2021-05-04 12:07] LABS: Magnesium 1.8 mg/dL (1.7-2.3); Phosphorus 3.6 mg/dL (2.5-4.5); Potassium 4.3 mmol/L (3.5-5.1); Sodium 136 mmol/L (136-145)
== END 2021-05-04 11:31 | disposition home or self-care (01) ==
LOC: LAB 11:33
PROVIDERS: PCP Nurse Practitioner Family; Visit Provider Internal Medicine Rheumatology
DX: D64.9 Anemia, unspecified (principal); M19.90 Unspecified osteoarthritis, unspecified site; R25.2 Cramp and spasm; Z79.899 Other long term (current) drug therapy
CPT/HCPCS: 36415; 83735; 84100; 84132; 84295; 85025

== ENCOUNTER → 2021-07-14 12:54 | Outpatient (BNVA) | payer MEDICAID, SELFPAY | PROVIDERS: PCP Nurse Practitioner Family; Visit Provider Surgery | DX: Z11.52 Encounter for screening for COVID-19 (principal) | CPT/HCPCS: 87635 ==

== ENCOUNTER → 2021-08-10 14:36 | Outpatient (BNVA) | payer MEDICAID, SELFPAY | PROVIDERS: PCP Nurse Practitioner Family; Visit Provider Surgery | DX: Z11.52 Encounter for screening for COVID-19 (principal) | CPT/HCPCS: 87635 ==

== ENCOUNTER → 2021-08-12 09:29 | Outpatient (BNVA) | payer MEDICAID, SELFPAY | PROVIDERS: PCP Nurse Practitioner Family; Visit Provider Internal Medicine Rheumatology | DX: M19.90 Unspecified osteoarthritis, unspecified site (principal); R76.8 Other specified abnormal immunological findings in serum; R20.2 Paresthesia of skin; Z79.899 Other long term (current) drug therapy; I73.00 Raynaud's syndrome without gangrene | CPT/HCPCS: 99214 ==

== ENCOUNTER 2021-08-12 10:36 | Outpatient (CLI) | payer MEDICAID, SELFPAY ==
[2021-08-12 11:25] LABS: Urine Protein Random 10 mg/dL
[2021-08-12 11:46] LABS: Blood Urine Neg (Negative); Glucose Urine UA Norm (Normal); Ketones Urine Negative (Negative); Protein Urine Neg (Negative); Urine Appearance Clear (CLEAR); Urine Color Straw (Yellow); pH Urine 7 (5-7)
[2021-08-12 11:47] LABS: Add Urine Culture? Yes; Bacteria Urine 2+ /hpf; Bilirubin Urine Neg (Negative); Leukocyte Esterase Urine Trace (Negative); Nitrate Urine Positive (Negative); RBC Urine 0-4 /hpf (0-2); Squamous Epithelial Cell Urine 0-4 /hpf (0-5); Urobilinogen Urine Norm (Negative); WBC Urine 15-25 /hpf (0-5)
== END 2021-08-12 10:37 | disposition home or self-care (01) ==
LOC: LAB 10:38
PROVIDERS: PCP Nurse Practitioner Family; Visit Provider Internal Medicine Rheumatology
DX: N39.0 Urinary tract infection, site not specified (principal); Z79.899 Other long term (current) drug therapy
CPT/HCPCS: 81001; 84156

== ENCOUNTER 2021-08-14 07:33 | Day surgery (SDC) | payer MEDICAID, SELFPAY ==
[2021-07-14 10:03] VITALS: BMI 29.2
[2021-08-12 12:52] VITALS: BMI 27.4
[2021-08-14 07:45] VITALS: BP 107/66; PULSE 88; RESP 16; TEMP 36.8; O2SAT 98
[2021-08-14] MEDS: sodium chloride 0.9% 1,000 ML 30 ML IV (07:52)
--- NOTE | 2021-08-14 08:38 | ANES.PREANE2 ---
Pre-Anesthetic Assessment Height/Weight: Height 1.65 m Weight 74.843 kg Temp Pulse Resp BP Pulse Ox 98.3 F 88 16 107/66 98 08/14/21 07:45 08/14/21 07:45 08/14/21 07:45 08/14/21 07:45 08/14/21 07:45 Preop Diagnosis: Bleeding per rectum and diarrhea Operation Date: 07/16/21 12:00 Proposed Procedures p EGD/Colon 44828 R10.9(Not Applicable) - Gonzales Ramirez MD s Colonoscopy 38180 R19.7 K92.1(Not Applicable) - Gonzales Ramirez MD Operation Date: 08/14/21 09:00 Proposed Procedures p EGD /COLON(Not Applicable) - Gonzales Ramirez MD s Colonoscopy(Not Applicable) - Gonzales Ramirez MD Was Beta Talon taken within 24 hours: N/A Was Clonidine taken within 24 hours: N/A Last intake: Intake Last Liquid Date 08/13/21 Last Liquid Time 23:40 Last Solid Date 08/12/21 Last Solid Time 21:00 Social Tobacco Exam alert, oriented x 3, clear to auscultation bilaterally and regular rate & rhythm Airway Submandibular: within normal limits Cervical ROM: within normal limits Mallampati: Class II Dentition: full History/ROS No significant history except as noted and No significant complaints Pulmonary Cough CV/HEM None reported None reported Hepatic None reported GI None reported Metabolic None reported Musc/skel None reported Neuropsych Anxiety and Bipolar Anesthetic Plan ASA status: 2 Anesthesia: MAC Risk of > 500 ml blood loss (7ml/kg in children): No Medications/Allergies Home Medications Medication Instructions Recorded Confirmed Last Taken Type ibuprofen 200 mg capsule 600 mg PO BID PRN cap 12/18/20 08/14/21 2 Days Ago History ~04/05/21 prednisone 10 mg tablet See Rx Instructions PO .COMPLEX 05/04/21 08/14/21 08/12/21 Rx PRN #30 tab ciprofloxacin HCl 500 mg tablet 500 mg PO DAILY #5 tab 08/12/21 08/14/21 08/13/21 Rx (Cipro) hydroxychloroquine 200 mg tablet See Rx Instructions PO .COMPLEX 08/12/21 08/14/21 08/13/21 Rx #45 tab pantoprazole 40 mg tablet,delayed 30 mg PO DAILY 08/12/21 08/14/21 Unknown History release Allergies Allergy/AdvReac Type Severity Reaction Status Date / Time silver Allergy Severe ALGY-Hives Verified 08/14/21 07:43 Current Medications Generic Name Dose Route Start Last Admin Trade Name Nirajq PRN Reason Stop Dose Admin Sodium Chloride 1,000 mls @ 30 mls/hr 08/14/21 07:45 08/14/21 07:52 Sodium Chloride 0.9% IV 08/15/21 07:44 30 mls/hr .Q24H KADEN Administration PFSH Anesthesia Medical History (Updated 08/12/21 @ 10:36 by Morris Gardner MD) Anxiety and depression Bilateral knee pain Bipolar depression Cellulitis of umbilicus Cervical spine pain Chronic joint pain Fall at home Family history of systemic lupus erythematosus Fatigue Fatigue Fever H/O acute pelvic inflammatory disease High risk medication use Hypertension screen Inflammatory arthritis Irregular menstrual bleeding Low libido Medication management Otitis media of both ears Paresthesia Positive CHRISTY (antinuclear antibody) Right shoulder strain Sinusitis, bacterial UTI (urinary tract infection) Vitamin D deficiency Surgical History (Updated 08/12/21 @ 09:50 by Meghana Diego LPN) H/O tubal ligation 2012 History of 2012 History of cholecystectomy 2009 Family History Mother Cervical cancer Father Diabetes Chronic kidney disease (CKD) CAD (coronary artery disease) Hyperlipidemia Hypertension Lung disease Lupus Grandfather Diabetes Paternal Sister Chronic kidney disease (CKD) Lupus Other Family history of premature coronary artery disease Rheumatoid arthritis Denies family history of Bleeding disorder Stroke Social History Smoking and tobacco status: never smoked History of recent travel: No Female Reproductive History Date of last menstrual period: 03/23/21 Data Anesthesia Cardiac Studies: No Data to Display
--- NOTE | 2021-08-14 09:09 | P.HP_ITS ---
Same Day Surgery H&P Indication for Procedure/HPI DATE OF PROCEDURE: August 14, 2021 CHIEF COMPLAINT/INDICATIONFOR SURGICAL PROCEDURE: Blood in stool PREOP DIAGNOSIS: Bleeding per rectum and diarrhea PLANNED PROCEDURE: Operation Date: 07/16/21 12:00 Proposed Procedures p EGD/Colon 17788 R10.9(Not Applicable) - Gonzales Ramirez MD s Colonoscopy 64802 R19.7 K92.1(Not Applicable) - Gonzales Ramirez MD Operation Date: 08/14/21 09:00 Proposed Procedures p EGD /COLON(Not Applicable) - MD nawaf Adamson Colonoscopy(Not Applicable) - Gonzales Ramirez MD 06/03/2021 This is a pleasant 31 years old female patient well-known to me from previous clinical encounter as I was consulted intraoperatively to help with Dr. Stanley during a laparoscopic hysterectomy for vaginal bleeding that was back in 04/07/2021 and to help out with adhesiolysis intraoperative.? Patient actually is coming today escorting her dad for a different consultation yet she did mention to me that she has been having some bowel issues in the form of diarrhea and blood in stool associated with bloating and being gassy and appears that those symptoms has been there for quite some time and previously was diagnosed with IBS.? Patient reports that she would double down whenever she has a bowel movement and reports that the size of her stools become like a finger like that got little bit bigger after her last surgery. Patient also reports that she has history of pushing to expel the stools out even before surgery and has the same manifestation till now and sometimes she has to introduce her fingers to evacuate the stools out. Patient reports history of diarrhea, nonbloody in nature, has been going on for quite some time.? Patient denies history of recent travels, antibiotics, change in medications, questionable source of water, no history of sick contacts, no history of thyroid disorders.? Patient reports that her gallbladder was taken out surgically. She does not recall any history of celiac disease and she does complain of some tenderness towards the right lower side of her abdomen. History of vaginal delivery x3.? And she was never diagnosed by pelvic floor dysfunction. 08/14/2021 Patient comes today for diagnostic EGD and colonoscopy ROS All systems have been all systems have been reviewed negative except as per the above or per problem Medications/Allergies* Home Medications Medication Instructions Recorded Confirmed Type ibuprofen 200 mg capsule 600 mg PO BID PRN cap 12/18/20 08/14/21 History pantoprazole 40 mg tablet,delayed 30 mg PO DAILY 08/12/21 08/14/21 History release Allergies/Adverse Reactions Allergy/AdvReac Type Severity Reaction Status Date / Time silver Allergy Severe ALGY-Hives Verified 08/14/21 09:11 Current Medications: Generic Name Dose Route Start Last Admin Trade Name Leatha PRN Reason Stop Dose Admin Sodium Chloride 1,000 mls @ 30 mls/hr 08/14/21 07:45 08/14/21 07:52 Sodium Chloride 0.9% IV 08/15/21 07:44 30 mls/hr .Q24H KADEN Administration Pertinent History/Comorbid Conditions* Medical History (Updated 08/12/21 @ 10:36 by Morris Gardner MD) Anxiety and depression Bilateral knee pain Bipolar depression Cellulitis of umbilicus Cervical spine pain Chronic joint pain Fall at home Family history of systemic lupus erythematosus Fatigue Fatigue Fever H/O acute pelvic inflammatory disease High risk medication use Hypertension screen Inflammatory arthritis Irregular menstrual bleeding Low libido Medication management Otitis media of both ears Paresthesia Positive CHRISTY (antinuclear antibody) Right shoulder strain Sinusitis, bacterial UTI (urinary tract infection) Vitamin D deficiency Surgical History (Updated 04/15/21 @ 14:34 by Yvonne Stanley MD) H/O tubal ligation 2012 History of 2012 History of cholecystectomy 2009 Family History (Updated 01/23/21 @ 09:54 by Esther Lama LPN) Rheumatoid arthritis Cervical cancer Mother Diabetes Father Grandfather Paternal Lupus Father Sister CAD (coronary artery disease) Father Hyperlipidemia Father Chronic kidney disease (CKD) Father Sister Family history of premature coronary artery disease Lung disease Father Hypertension Father Denies family history of Bleeding disorder Stroke Social History Smoking and tobacco status: never smoked History of recent travel: No Pertinent Exam Findings alert, oriented x 3, clear to auscultation bilaterally, regular rate & rhythm and procedure specific exam findings (Abdominal examination nontender nondistended soft) Recommendations Surgery/Procedure today (Diagnostic EGD and colonoscopy) Coding Level of Care Code Acute 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
[2021-08-14 09:39] VITALS: BP 92/47; PULSE 64; RESP 16; TEMP 36.2; O2SAT 98
[2021-08-14 09:52] VITALS: BP 113/46; PULSE 71; RESP 18; O2SAT 99
[2021-08-14 10:06] VITALS: BP 104/52; PULSE 71; RESP 18; O2SAT 100
--- NOTE | 2021-08-14 17:39 | ANE.PACU2 ---
Inpatient post-anesthesia follow up: Airway intact: Yes Vital signs: Temperature 97.2 F Pulse Rate 71 Respiratory Rate 18 Blood Pressure 104/52 Pulse Oximetry 100 Oxygen Delivery Me thod Room Air Oxygen Flow Rate 4 Fraction of Inspir ed Oxygen Hydration adequate: Yes Nausea and vomiting: No Pain level: 1 Mental status: Baseline
== END 2021-08-14 10:22 | disposition home or self-care (01) ==
PROVIDERS: PCP Nurse Practitioner Family; Visit Provider Surgery
PROC: 0DJ08ZZ Inspection of Upper Intestinal Tract, Via Natural or Artificial Opening Endoscopic (ICD-10-PCS; CPT 43235; principal; 2021-08-14 09:00)
PROC: 0DJD8ZZ Inspection of Lower Intestinal Tract, Via Natural or Artificial Opening Endoscopic (ICD-10-PCS; CPT 45378; 2021-08-14 09:00)
DX: K62.5 Hemorrhage of anus and rectum (principal); K92.1 Melena; Z82.49 Family history of ischemic heart disease and other diseases of the circulatory system; Z83.3 Family history of diabetes mellitus; Z80.8 Family history of malignant neoplasm of other organs or systems; K29.60 Other gastritis without bleeding
CPT/HCPCS: 45378; 82274; 83630; 87493; 87506; 88305; J2704; J7030

== ENCOUNTER → 2021-08-26 14:31 | Outpatient (BNVA) | payer MEDICAID, SELFPAY | PROVIDERS: PCP Nurse Practitioner Family; Visit Provider Surgery | DX: Z09 Encounter for follow-up examination after completed treatment for conditions other than malignant neoplasm (principal); K29.70 Gastritis, unspecified, without bleeding; R19.4 Change in bowel habit; F17.210 Nicotine dependence, cigarettes, uncomplicated | CPT/HCPCS: 99213 ==

== ENCOUNTER → 2021-11-17 12:45 | Outpatient (BNVA) | payer MEDICAID, SELFPAY | PROVIDERS: PCP Nurse Practitioner Family; Visit Provider Otolaryngology | DX: M26.621 Arthralgia of right temporomandibular joint (principal); H74.03 Tympanosclerosis, bilateral; F17.210 Nicotine dependence, cigarettes, uncomplicated | CPT/HCPCS: 99202; 99204 ==

== ENCOUNTER → 2021-11-19 14:33 | Outpatient (BNVA) | payer MEDICAID, SELFPAY | PROVIDERS: Visit Provider Orthopaedic Surgery | DX: M54.9 Dorsalgia, unspecified (principal); W17.81XA Fall down embankment (hill), initial encounter | CPT/HCPCS: 72070; 72100; 99204 ==

== ENCOUNTER → 2021-11-27 10:16 | Outpatient (BNVA) | payer MEDICAID, SELFPAY | PROVIDERS: PCP Nurse Practitioner Family; Visit Provider Internal Medicine Rheumatology | DX: M19.90 Unspecified osteoarthritis, unspecified site (principal); Z79.899 Other long term (current) drug therapy | CPT/HCPCS: 80076; 82565; 85025; 86140 ==

== ENCOUNTER 2021-12-08 06:00 | Outpatient (RCR) | payer SELFPAY | END 2021-12-20 23:59 | disposition home or self-care (01) | LOC: WPT 06:00 | PROVIDERS: PCP Nurse Practitioner Family; Referring Provider Orthopaedic Surgery; Visit Provider Orthopaedic Surgery | DX: M54.50 Low back pain, unspecified (principal) | CPT/HCPCS: 97161 ==

== ENCOUNTER 2021-12-21 06:00 | Outpatient (RCR) | payer MEDICAID, SELFPAY | END 2022-01-20 23:59 | disposition home or self-care (01) | LOC: WPT 06:00 | PROVIDERS: PCP Nurse Practitioner Family; Referring Provider Orthopaedic Surgery; Visit Provider Orthopaedic Surgery | DX: M54.9 Dorsalgia, unspecified (principal); G89.29 Other chronic pain | CPT/HCPCS: 97110; 97112; 97530 ==

== ENCOUNTER 2022-01-21 06:00 | Outpatient (RCR) | payer MEDICAID, SELFPAY | END 2022-02-19 23:59 | disposition home or self-care (01) | LOC: WPT 06:00 | PROVIDERS: PCP Nurse Practitioner Family; Visit Provider Orthopaedic Surgery | DX: M54.50 Low back pain, unspecified (principal); G89.29 Other chronic pain | CPT/HCPCS: 97110; 97530 ==

== ENCOUNTER 2022-01-22 11:17 | Outpatient (CLI) | payer MEDICAID, SELFPAY ==
--- NOTE | 2022-01-22 11:15 | MR_ITS ---
WS: [id number] MRI LUMBAR SPINE NONCONTRAST HISTORY: Chronic low back pain radiating down both legs. COMPARISON: None available. TECHNIQUE: Sagittal and axial multisequence imaging is submitted. Normal posterior lumbar alignment. Small subchondral cystic lesion in the posterior L5 vertebral body . No fractures or marrow edema otherwise. Mild disc space narrowing and desiccation at L5-S1. The remaining discs are normal. Conus terminates normally at L1-2 disc level. L1-L2: Normal. L2-L3: Normal. L3-L4: Normal. L4-L5: Mild disc bulging. Very slight encroachment upon the subarticular recesses but no stenosis. No focal disc protrusion. Central annular fissure. Mild facet arthritis. L5-S1: Small central disc protrusion with narrowing of the RIGHT subarticular recess. No displacement of the S1 nerve root. There is no significant stenosis. Paravertebral soft tissues are normal. MR/MR lumbar spine wo con* [id number] IMPRESSION: 1. No significant central or foraminal stenosis. 2. Small central disc protrusion at L5-S1 with encroachment upon the RIGHT sub articular recess but no displacement of the nerve roots. No significant stenosi s.
== END 2022-01-22 11:18 | disposition home or self-care (01) ==
LOC: RAD 11:19
PROVIDERS: PCP Nurse Practitioner Family; Visit Provider Orthopaedic Surgery
DX: M79.661 Pain in right lower leg (principal); M79.662 Pain in left lower leg; M51.27 Other intervertebral disc displacement, lumbosacral region
CPT/HCPCS: 72148

== ENCOUNTER 2022-05-18 08:24 | Day surgery (SDC) | payer MEDICAID, SELFPAY ==
[2022-05-14 08:18] VITALS: BMI 25.9
--- NOTE | 2022-05-18 07:35 | P.HP_ITS ---
Same Day Surgery H&P Indication for Procedure/HPI DATE OF PROCEDURE: May 18, 2022 CHIEF COMPLAINT/INDICATIONFOR SURGICAL PROCEDURE: Bowel issues PREOP DIAGNOSIS: Bleeding per rectum and diarrhea PLANNED PROCEDURE: Operation Date: 05/18/22 10:10 Proposed Procedures p Colonoscopy 52397,K92.1,R19.4,D64.9(Not Applicable) - Gonzales Ramirez MD 06/03/2021 This is a pleasant 31 years old female patient well-known to me from previous clinical encounter as I was consulted intraoperatively to help with Dr. Stanley during a laparoscopic hysterectomy for vaginal bleeding that was back in 04/07/2021 and to help out with adhesiolysis intraoperative.? Patient actually is coming today escorting her dad for a different consultation yet she did mention to me that she has been having some bowel issues in the form of diarrhea and blood in stool associated with bloating and being gassy and appears that those symptoms has been there for quite some time and previously was diagnosed with IBS.? Patient reports that she would double down whenever she has a bowel movement and reports that the size of her stools become like a finger like that got little bit bigger after her last surgery. Patient also reports that she has history of pushing to expel the stools out even before surgery and has the same manifestation till now and sometimes she has to introduce her fingers to evacuate the stools out. Patient reports history of diarrhea, nonbloody in nature, has been going on for quite some time.? Patient denies history of recent travels, antibiotics, change in medications, questionable source of water, no history of sick contacts, no history of thyroid disorders.? Patient reports that her gallbladder was taken ou t surgically. She does not recall any history of celiac disease and she does complain of some tenderness towards the right lower side of her abdomen. History of vaginal delivery x3.? And she was never diagnosed by pelvic floor dysfunction. 08/26/2021 Patient comes today for follow-up status post EGD and colonoscopy where she was found to have gastritis and was placed on PPI therapy.? Colonoscopy showed normal findings yet the patient's prep was suboptimal and likely she would benefit from a repeat colonoscopy in 6 months to 1 year as smaller polyps could have been missed. Patient reports that she felt a whole lot better after the colon prep and cleansing which tells me that the patient has a baseline chronic constipation She reports being sore towards the right groin likely due to previous scar. Pathology did show A.? Small bowel, second part of duodenum, rule out celiac , biopsy: ?Chronic active duodenitis. ?Mild blunting of villi. ?No increase in intraepithelial lymphocytes. ?No dysplasia identified. ?No overt evidence of celiac disease. B.? Stomach, antrum , biopsy: ?Benign antral mucosa with focal inactive gastritis. ?No H. pylori-like organisms identified. ?No intestinal metaplasia or dysplasia identified. Stool studies were done and showed Lactoferrin??Final? 08/14/21 ? Lactoferrin ? Negative: No fecal lactoferrin detected. ? Enteric Bacterial Panel by PCR??Final? 08/14/21 ? No Shigella/E.coli (EIEC) DNA Detected ? No Shiga Toxin I/II Genes Detected ? No Campylobacter DNA Detected ? No Salmonella DNA Detected ? Enteric Parasite Panel by PCR??Final? 08/14/21 ? No Giardia lamblia DNA Detected ? No Entamoeba histolytica DNA Detected ? No Cryptosporidium DNA detected ? Clostridioides Difficile PCR??Final? 08/14/21 ? No C. difficile toxin B gene DNA detected ? Immunochemical Fecal OCB??Final? 08/14/21 ? IFOB Results: ? Negative for Occult Blood Interim history 05/12/2022 via telehealth Patient has a follow-up today as she had to cancel her scheduled colonoscopy on 29 April 2022 because of family related issues.? She continues to have persistent intermittent right lower quadrant abdominal pain but overall she is feeling better.? Her last colonoscopy was done on 08/14/2021 and at that time the colon prep was inadequate and subsequently the patient was advised to repeat the colonoscopy in 6 months to 1 year Interim history 05/18/2022 Patient comes today for repeat colonoscopy as last attempt the prep was inadequate. ROS All systems have been reviewed negative except as for the above or per problem list. Medications/Allergies* Home Medications Medication Instructions Recorded Confirmed Type No Known Home Medications 04/27/22 05/14/22 History Allergies/Adverse Reactions Allergy/AdvReac Type Severity Reaction Status Date / Time silver Allergy Severe ALGY-Hives Verified 05/18/22 08:56 Pertinent History/Comorbid Conditions* Medical History (Updated 02/04/22 @ 11:54 by Osvaldo Cruz DO) Anxiety and depression Bilateral knee pain Bipolar depression Cellulitis of umbilicus Cervical spine pain Chronic joint pain Fall at home Family history of systemic lupus erythematosus Fatigue Fatigue Fever H/O acute pelvic inflammatory disease High risk medication use Hypertension screen Inflammatory arthritis Irregular menstrual bleeding Low libido Medication management Otitis media of both ears Paresthesia Positive CHRISTY (antinuclear antibody) Right shoulder strain Sinusitis, bacterial UTI (urinary tract infection) Vitamin D deficiency Surgical History (Updated 11/17/21 @ 12:[address] MD) H/O tubal ligation 2012 History of 2012 History of cholecystectomy 2009 History of LAVH still has ovaries and pt taken back to surgery one day after for a bleeder S/P hysterectomy Family History (Updated 01/23/21 @ 09:54 by Esther Lama LPN) Rheumatoid arthritis Cervical cancer Mother Diabetes Father Grandfather Paternal Lupus Father Sister CAD (coronary artery disease) Father Hyperlipidemia Father Chronic kidney disease (CKD) Father Sister Family history of premature coronary artery disease Lung disease Father Hypertension Father Denies family history of Bleeding disorder Stroke Social History Smoking and tobacco status: current every day smoker (half a pack a day) History of recent travel: No Pertinent Exam Findings alert, oriented x 3, clear to auscultation bilaterally, regular rate & rhythm and procedure specific exam findings (Abdominal exam nontender nondistended soft except in the right lower quadra) Recommendations Surgery/Procedure today (Colonoscopy with possible biopsy) Other Plans: Plan of care; After thorough history and physical examination and reviewing the chart, plan to perform colonoscopy. I discussed with the patient in details the risks,benefits,alternatives and indications.The risk of aspiration, bleeding, soft tissue injury, perforation of the colon ,missed lesions and other potential concomitant complications were explained to the patient in details,also the potential need for Laproscoy/Laparotomy to repair any related complications including but not limited to colectomy and or Closotomy.The patient understood this well and did agree to proceed. Rationale was carefully and clearly discussed with the patient.Appropriate informed consent have been reviewed and signed All questions have been answered and all concerns have been addressed to patient's satisfaction. 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
[2022-05-18 08:36] VITALS: BP 118/87; PULSE 99; RESP 18; TEMP 36.3; O2SAT 99
[2022-05-18] MEDS: sodium chloride 0.9% 1,000 ML 30 ML IV (08:49)
--- NOTE | 2022-05-18 09:02 | ANES.PREANE2 ---
Pre-Anesthetic Assessment Height/Weight: Height 1.65 m Weight 70.76 kg Temp Pulse Resp BP Pulse Ox O2 Del Method 97.3 F L 99 18 118/87 99 05/18/22 08:36 05/18/22 08:36 05/18/22 08:36 05/18/22 08:36 05/18/22 08:36 05/18/22 08:36 Preop Diagnosis: Change in bowel habits Operation Date: 05/18/22 10:10 Proposed Procedures p Colonoscopy 32380,K92.1,R19.4,D64.9(Not Applicable) - Gonzales Ramirez MD Familial anesthetic complications: none Was Beta Talon taken within 24 hours: N/A Was Clonidine taken within 24 hours: N/A Last intake: Intake Last Liquid Date 05/17/22 Last Liquid Time 22:00 Last Solid Date 05/15/22 Last Solid Time 22:00 Social Tobacco and No alcohol Exam alert, oriented x 3, clear to auscultation bilaterally and regular rate & rhythm Airway Mallampati: Class II Dentition: full Neuropsych Anxiety and Bipolar Anesthetic Plan ASA status: 2 Anesthesia: MAC Risk of > 500 ml blood loss (7ml/kg in children): No Medications/Allergies Home Medications Medication Instructions Recorded Confirmed Last Taken Type No Known Home Medications 04/27/22 05/14/22 Unknown History Allergies Allergy/AdvReac Type Severity Reaction Status Date / Time silver Allergy Severe ALGY-Hives Verified 05/18/22 08:56 Current Medications Generic Name Dose Route Start Last Admin Trade Name Freq PRN Reason Stop Dose Admin Sodium Chloride 1,000 mls @ 30 mls/hr 05/18/22 08:45 05/18/22 08:49 Sodium Chloride 0.9% IV 05/19/22 08:44 30 mls/hr .Q24H KADEN Administration PFSH Anesthesia Medical History Anxiety and depression Bilateral knee pain Bipolar depression Cellulitis of umbilicus Cervical spine pain Chronic joint pain Fall at home Family history of systemic lupus erythematosus Fatigue Fatigue Fever H/O acute pelvic inflammatory disease High risk medication use Hypertension screen Inflammatory arthritis Irregular menstrual bleeding Low libido Medication management Otitis media of both ears Paresthesia Positive CHRISTY (antinuclear antibody) Right shoulder strain Sinusitis, bacterial UTI (urinary tract infection) Vitamin D deficiency Surgical History H/O tubal ligation 2012 History of 2012 History of cholecystectomy 2009 History of LAVH still has ovaries and pt taken back to surgery one day after for a bleeder S/P hysterectomy Family History Mother Cervical cancer Father Diabetes Chronic kidney disease (CKD) CAD (coronary artery disease) Hyperlipidemia Hypertension Lung disease Lupus Grandfather Diabetes Paternal Sister Chronic kidney disease (CKD) Lupus Other Family history of premature coronary artery disease Rheumatoid arthritis Denies family history of Bleeding disorder Stroke Social History Smoking and tobacco status: current every day smoker (half a pack a day) History of recent travel: No Female Reproductive History Date of last menstrual period: 03/23/21 Data Anesthesia Cardiac Studies: No Data to Display
[2022-05-18 09:42] VITALS: BP 101/54; PULSE 92; RESP 16; TEMP 36.9; O2SAT 99
[2022-05-18 09:59] VITALS: BP 92/56; PULSE 82; RESP 18; O2SAT 100
--- NOTE | 2022-05-18 16:03 | ANE.PACU2 ---
Inpatient post-anesthesia follow up: Airway intact: Yes Vital signs: Temperature 98.4 F Pulse Rate 82 Respiratory Rate 18 Blood Pressure 92/56 Pulse Oximetry 100 Oxygen Delivery Me thod Room Air Oxygen Flow Rate Fraction of Inspir ed Oxygen Hydration adequate: Yes Nausea and vomiting: No Pain level: 1 Mental status: Baseline
== END 2022-05-18 10:24 | disposition home or self-care (01) ==
PROVIDERS: PCP Nurse Practitioner Family; Visit Provider Surgery
PROC: 0DJD8ZZ Inspection of Lower Intestinal Tract, Via Natural or Artificial Opening Endoscopic (ICD-10-PCS; CPT 45378; principal; 2022-05-18 10:10)
DX: R19.4 Change in bowel habit (principal); F17.210 Nicotine dependence, cigarettes, uncomplicated
CPT/HCPCS: 45378; J2704; J7030